=== PATIENT | female | born 1990 | race African-American/Black ===

== ENCOUNTER 2021-01-21 12:21 | Emergency (ER) | payer OTHER ==
[~2021-01-21] VITALS: Ht 182.9 cm; Wt 88.5 kg
[2021-01-21] MEDS ORDERED: SEROQUEL25 MG (12:48)
[2021-01-21] MEDS ORDERED: KETO10TA2 PO ×2 (15:43→15:44)
[2021-01-21] MEDS ORDERED: TOBRAMYCIN-DEXAM5 ML OP (15:44)
== END 2021-01-21 15:58 | disposition home or self-care (01) ==
LOC: ER 12:21
DX: S05.02XA Injury of conjunctiva and corneal abrasion without foreign body, left eye, initial encounter (principal); W22.8XXA Striking against or struck by other objects, initial encounter; Y93.89 Activity, other specified; Y92.29 Other specified public building as the place of occurrence of the external cause; Y99.8 Other external cause status